=== PATIENT | female | born 1940 | race Caucasian/White ===

== ENCOUNTER → 2018-09-12 13:46 | Outpatient (CLI) | payer MEDICARE, OTHER, SELFPAY ==
--- NOTE | 2018-09-12 | DI.MRI.S_ITS ---
PROCEDURE: MR KNEE RT WO CON INDICATIONS: DERANGEMENT OF RIGHT KNEE TECHNIQUE: Noncontrast sagittal PD fast spin echo and T2 fast spin echo with fat saturation, sagittal 3-D FLASH with fat saturation; coronal T1 spin echo and PD fast spin echo with fat saturation, and axial PD fast spin echo with fat saturation through the knee. COMPARISON: None. FINDINGS: Image quality: Excellent. Menisci: Complex oblique tear involving posterior horn of medial meniscus is seen extending to superior articulating surface. There is no focal lateral meniscal tear. There is peripheral displacement of medial meniscus bowing medial collateral ligament. The meniscal root ligaments appear intact. Cruciate ligaments: The anterior and posterior cruciate ligaments appear intact. Medial structures: The medial collateral ligament appears intact. The posterior oblique ligament, semimembranosus tendon insertions, oblique popliteal ligament, and meniscocapsular junction appear intact. Visualized portions of the pes anserinus tendons appear normal. No abnormal bursal fluid. Lateral structures: The lateral collateral ligament, long and short heads of the biceps femoris tendon appear intact. The popliteus tendon appears normal; the popliteofibular ligament appears intact. The posterosuperior and anteroinferior popliteomeniscal fascicles appear intact. The arcuate and fabellofibular ligaments appear intact, on either side of the lateral inferior geniculate artery. Iliotibial band appears normal. Anterior structures: The quadriceps and patellar tendons appear intact. Patellar alignment is normal. No femoral trochlear dysplasia or ventral trochlear prominence. No edema in the infrapatellar fat pad. Bones and cartilage: No bone marrow contusions or fractures. 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 Low-grade chondromalacia in all 3 compartments is also noted. Joint space: There is small amount of joint effusion, no gross loose body. No Farias's cyst. Normal appearing synovial plicae are incidentally noted. IMPRESSION: 1. Complex oblique tear involving posterior horn of medial meniscus extending to superior articulating surface. No evidence of focal lateral meniscal tear. 2. Mild to moderate tricompartmental osteoarthritis more prominent in the medial femorotibial compartment. Small amount of joint effusion. 3. Cruciate ligaments are intact. Dictated by: Kevin Carcamo M.D. on 09/12/2018 at 16:03 Approved by: Kevin Carcamo M.D. on 09/12/2018 at 16:06
== END ==
PROVIDERS: PCP Family Medicine; Visit Provider Orthopaedic Surgery
DX: S83.231A Complex tear of medial meniscus, current injury, right knee, initial encounter (principal); M17.11 Unilateral primary osteoarthritis, right knee; M94.261 Chondromalacia, right knee; M25.461 Effusion, right knee
CPT/HCPCS: 73721

== ENCOUNTER 2019-03-07 12:27 | Emergency (ER) | payer MEDICARE, OTHER, SELFPAY ==
--- NOTE | 2019-03-07 12:52 | DI.RAD.S_ITS ---
PROCEDURE: XR CHEST 2V INDICATIONS: cough, dyspnea TECHNIQUE: 2 views of the chest were acquired. COMPARISON: None. FINDINGS: Surgical changes and devices: None. Lungs and pleura: Slight elevation of the right diaphragm is present. There is scarring within the lung apices. Mild increased interstitial markings within the left infrahilar region/retrocardiac region are present with possible subtle developing airspace disease. There is no large effusion or pneumothorax. Mediastinum: Mediastinal contours are normal. Heart size is normal. There is aortic atherosclerosis. Bones and chest wall: No suspicious bony abnormalities. Soft tissues appear unremarkable. IMPRESSION: Possible developing left basilar pneumonia. Dictated by: Jett James M.D. on 03/07/2019 at 12:42 Approved by: Jett James M.D. on 03/07/2019 at 12:44
[2019-03-07 12:53] VITALS: BP 136/84; PULSE 75; RESP 20; TEMP 36.3; O2SAT 100; BMI 28.3
--- NOTE | 2019-03-07 13:01 | ED_ITS ---
HPI - SOB/Dyspnea <Bernie Goodwin PA-C - Last Filed: 03/07/19 20:34> General Chief Complaint: Shortness of Breath/Dyspnea Stated Complaint: cough x2 wks, exhaustion,coughing up green stuff Time Seen by Provider: 03/07/19 12:52 Source: patient Mode of arrival: Ambulatory Limitations: no limitations History of Present Illness HPI Narrative: This 78-year-old female comes to ED secondary to 10-14 day history of productive cough with green, discolored sputum. She states she has had some sinus pain and a bit of earache which are better. She denies sore throat. She did have a fever initially up to 101, none today. She has asthma and has been using her maintenance and rescue inhaler as needed and states these are working well for her. She has not had new wheeze or chest pain. She denies new extremity pain or swelling with this. She states she had some leftover antibiotic from a sinus infection at home that she started 3 or 4 days ago and actually feeling better, but was concerned about pneumonia. She is not sure what the antibiotic was. She states she came in at her daughter's insistence, does not want her to know about starting the antibiotic. She denies any specific exposures or foreign travel, however her is here with respiratory symptoms as well. Related Data Previous Rx's Medication Instructions Recorded doxycycline monohydrate 100 mg PO Q12H 10 Days #20 cap 03/07/19 Allergies Allergy/AdvReac Type Severity Reaction Status Date / Time amoxicillin [From Augmentin] Allergy Verified 03/07/19 14:08 clavulanic acid Allergy Verified 03/07/19 14:08 [From Augmentin] Review of Systems <Bernie Goodwin PA-C - Last Filed: 03/07/19 20:34> Review of Systems ROS Unobtainable: All systems reviewed & are unremarkable except as noted in HPI and below Patient History <Bernie Goodwin PA-C - Last Filed: 03/07/19 20:34> Medical History (Updated 03/07/19 @ 14:15 by Bernie Goodwin PA-C) Asthma (Chronic) Fibromyalgia (Chronic) Surgical History (Updated 03/07/19 @ 13:20 by Bernie Goodwin PA-C) History of sinus surgery (Resolved) Status post hysterectomy with oophorectomy (Resolved) Social History (Updated 03/07/19 @ 13:21 by Bernie Goodwin PA-C) Smoking Status: Former smoker Exam <Bernie Goodwin PA-C - Last Filed: 03/07/19 20:34> Narrative Exam Narrative: GENERAL APPEARANCE: Patient sitting comfortably, in no distress. HEAD: Mild bilateral maxillary tenderness EYES: PERRL, EOMI. EARS: Normal auditory canals, TMS intact, unable to fully visualize secondary to cerumen ORAL CAVITY: Normal oropharynx. THROAT: Clear. PND noted NECK/THYROID: Neck supple, full range of motion, no cervical lymphadenopathy. LUNGS: Coarse breath sounds without clear wheezes or crackles, wet cough on exam HEART: RRR without murmur, nl S1, S2, no S3 or S4. EXTREMITIES: Varicosities noted, trace edema, no calf tenderness Initial Vital Signs Initial Vital Signs: Vital Signs Temperature 97.3 F L 03/07/19 12:53 Pulse Rate 75 03/07/19 12:53 Respiratory Rate 20 03/07/19 12:53 Blood Pressure 136/84 03/07/19 12:53 Pulse Oximetry 100 03/07/19 12:53 <DO Renaldo Alcantara Last Filed: 03/08/19 07:08> Initial Vital Signs Initial Vital Signs: Vital Signs Temperature 97.3 F L 03/07/19 12:53 Pulse Rate 75 03/07/19 12:53 Respiratory Rate 20 03/07/19 12:53 Blood Pressure 136/84 03/07/19 12:53 Pulse Oximetry 100 03/07/19 12:53 Course <Bernie Goodwin PA-C - Last Filed: 03/07/19 20:34> Orders Ordered: ED Orders 03/07/19 12:52 XR chest 2V Stat Vital Signs Vital signs: Vital Signs - 8 hr 03/07/19 12:53 Temperature 97.3 F L Pulse Rate 75 Respiratory Rate 20 Blood Pressure 136/84 Pulse Oximetry 100 <DO Renlado Alcantara Last Filed: 03/08/19 07:08> Orders Ordered: ED Orders 03/07/19 12:52 XR chest 2V Stat Vital Signs Vital signs: Vital Signs - 8 hr 03/07/19 12:53 Temperature 97.3 F L Pulse Rate 75 Respiratory Rate 20 Blood Pressure 136/84 Pulse Oximetry 100 MDM - SOB/Dyspnea <Bernie Goodwin PA-C - Last Filed: 03/07/19 20:34> Imaging Data Chest x-ray: Radiologist's impression: [address] [address] XRay Report Signed Patient: Nilam OntiverosMR#: [id number] : 9Acct:[id number] Age/Sex: 78 / FDate of Service: 03/07/19 Loc: ED Accession Number: [id number] Procedure: XR chest 2V Ordering Provider: Bernie Goodwin P.A-C PROCEDURE: XR CHEST 2V INDICATIONS: cough, dyspnea TECHNIQUE: 2 views of the chest were acquired. COMPARISON: None. FINDINGS: Surgical changes and devices: None. Lungs and pleura: Slight elevation of the right diaphragm is present. There is scarring within the lung apices. Mild increased interstitial markings within the left infrahilar region/retrocardiac region are present with possible subtle developing airspace disease. There is no large effusion or pneumothorax. Mediastinum: Mediastinal contours are normal. Heart size is normal. There is aortic atherosclerosis. Bones and chest wall: No suspicious bony abnormalities. Soft tissues appear unremarkable. IMPRESSION: Possible developing left basilar pneumonia. Dictated by: Jett James M.D. on 03/07/2019 at 12:42 Approved by: Jett James M.D. on 03/07/2019 at 12:44 ECG Data Attestation: I personally reviewed and interpreted this ECG as follows: (Normal sinus rhythm, rate 77, LAD) Discharge Plan Departure Patient Disposition: Home Clinical Impression: Pneumonia Qualifiers: Pneumonia type: due to unspecified organism Laterality: left Lung location: unspecified part of lung Qualified Code(s): J18.9 - Pneumonia, unspecified organism Discharge Date/Time: 03/07/19 14:25 Instructions: DI for Pneumonia -- Adult Activity Restrictions/Additional Instructions: Please continue to use your inhalers as usual, along with Mucinex to help with chest congestion. Your chest x-ray shows that you may have an early or mild pneumonia, so it is reasonable to treat with antibiotics. I have sent a prescription for doxycycline to [facility] for you to strip picker today. Please start that when you pick it up. As we talked about, you should return to the closest ED if you have acutely worsening symptoms. Otherwise, please follow-up for recheck with your PCP next week. If you wish to see a local primary care provider, you can call the [facility] key account coordinator at [phone], and they can help you with this Prescriptions: New doxycycline monohydrate 100 mg capsule 100 mg PO Q12H 10 Days Qty: 20 RF: 0 Referrals: Jordon Kothari MD [Primary Care Provider] - <Martin Gregorio DO - Last Filed: 03/08/19 07:08> Sign Out Provider Sign Out Attestation: I was available for consultation during this patient's emergency department visit. This chart is signed by myself for administrative purposes only. I did not have direct contact with this patient during this visit. They were seen independently by the APC.
== END 2019-03-07 14:25 | disposition home or self-care (01) ==
PROVIDERS: Emergency Provider Internal Medicine; PCP Family Medicine
DX: J18.9 Pneumonia, unspecified organism (principal)
CPT/HCPCS: 71046; 93005; 99283; 99284

== ENCOUNTER → 2021-07-07 16:22 | Outpatient (CLI) | payer MEDICARE, OTHER, SELFPAY ==
--- NOTE | 2021-07-07 | DI.ECHO.S_ITS ---
Version: 1 Study ID: [id number] [place] [address] Name: ISRAEL VAZ Study Date: 07/07/2021, 4: 43 PM : 1940 BP: 139 / 89 mmHg Gender: Female Height: 62 in Age: 80 Years Weight: 138 lb BSA: 1.63 mA? Ordering: ENOCH FOX Referring: ENOCH FOX Clinician: Yin Read Reason For Study: SHORTNESS OF BREATH History: Summary Statements The left ventricle is normal in size and wall thickness. Left ventricular systolic function appears normal without focal wall motion abnormalities. The ejection fraction is estimated to be 60-65%. Diastolic parameters suggest a relaxation abnormality of the left ventricle, consistent with probable normal filling pressures. The right ventricle is normal in size and function. The right ventricular systolic pressure is estimated to be at least 27 mmHg based on an estimated right atrial pressure of 3 mm Hg. The left atrial size is normal. Right atrial size is normal. There is mild mitral annular calcification. There is trace mitral regurgitation. There is mild tricuspid regurgitation. There is no other significant valvular heart disease. The aortic root is normal size. Procedure: A two-dimensional transthoracic echocardiogram with color flow and Doppler was performed. The study quality was technically adequate. There is no prior echocardiogram noted for this patient. The patient was in sinus rhythm with heart rates between 62-76 bpm during the exam. The patient had occasional PVCs during the exam. Left Ventricle: The left ventricle is normal in size and wall thickness. Left ventricular systolic function appears normal without focal wall motion abnormalities. The ejection fraction is estimated to be 60-65%. Diastolic parameters suggest a relaxation abnormality of the left ventricle, consistent with probable normal filling pressures. Right Ventricle: The right ventricle is normal in size and function. Atria: The left atrial size is normal. Right atrial size is normal. There is no Doppler evidence for an interatrial shunt. Mitral Valve: There is mild mitral annular calcification. The mitral valve leaflets appear mildly thickened, but open well. There is trace mitral regurgitation. Aortic Valve: The aortic valve is trileaflet. The aortic valve is slightly calcified. The aortic valve opens well. There is no aortic valve stenosis. No aortic regurgitation is present. Tricuspid Valve: The tricuspid valve is normal in structure and function. There is mild tricuspid regurgitation. The right ventricular systolic pressure is estimated to be at least 27 mmHg based on an estimated right atrial pressure of 3 mm Hg. Pulmonic Valve: The pulmonic valve is not well seen, but is grossly normal. There is trace pulmonic regurgitation. There is no other significant valvular heart disease. Great Vessels: The aortic root is normal size. The ascending aorta could not be visualized. The IVC is of normal diameter and collapses greater than 50% with a sniff. This suggests a low right atrial pressure of 3 mm Hg. Pericardium/ Pleura: There is no pericardial effusion. There is no pleural effusion. 2D and M-Mode Measurements and Calculations LVIDd: 4.5 cm LVOT diam: 1.90 cm LVIDs: 2.8 cm Ao root diam: 2.9 cm IVSd: 0.81 cm Ao Arch Diam (Prox Trans): 2.39 cm LVPWd: 0.70 cm LV mccoy. diameter/BSA (cm/m^2): 2.7 LV sys. diameter/BSA (cm/m^2): 1.74 RVD1 (basal): 2.7 cm IVC diam: 1.17 cm TAPSE: 1.90 cm LA A4 area: 11.7 desk attendant? RA area: 11.4 desk attendant? LA A2 area: 15.2 desk attendant? RA long axis: 4.3 cm LA length (vol): 4.3 cm RA vol: 25.7 ml LA vol: 35.4 ml RA : 15.7 ml/mA? LA vol index: 21.7 ml/mA? Doppler Measurements and Calculations Ao V2 max: 145.5 cm/sec LVOT Max [place]: 107.1 cm/sec Ao V2 mean: 102.5 cm/sec LV V1 max P.6 mmHg Ao V2 VTI: 28.6 cm LV V1 VTI: 23.9 cm Ao max P.5 mmHg Ao mean P.7 mmHg CATALINA(I,D): 2.36 desk attendant? CATALINA(V,D): 2.08 desk attendant? CATALINA indexed to BSA (cm^2/m^2): 1.45 sev ratio: 0.83 MV E max chino: 78.3 cm/sec MV dec time: 0.24 sec MV A max chino: 127.6 cm/sec MV E/A: 0.61 Med Peak E' Chino: 4.0 cm/sec Lat Peak E' [place]: 5.7 cm/sec E/e' average: 16.8 TR max chino: 242.7 cm/sec PA mean P.30 mmHg TR max P.6 mmHg PA V2 max: 105.7 cm/sec Electronically signed by: Villa Shaffer 07/08/2021, 9: 08 AM
== END ==
PROVIDERS: PCP Internal Medicine; Referring Provider Student in an Organized Health Care Education/Training Program; Visit Provider Student in an Organized Health Care Education/Training Program
DX: I07.1 Rheumatic tricuspid insufficiency (principal); R06.02 Shortness of breath
CPT/HCPCS: 93306

== ENCOUNTER → 2021-12-03 15:27 | Outpatient (CLI) | payer MEDICARE, OTHER, SELFPAY ==
--- NOTE | 2021-12-03 | DI.RAD.S_ITS ---
PROCEDURE: XR THORACIC SPINE 3V INDICATIONS: WORSENING OF MID-BACK PAIN TECHNIQUE: <3> views of the thoracic spine were acquired. COMPARISON: None. FINDINGS: Bones: Mild wedging of multiple thoracic vertebral bodies, age indeterminate. Qrgl-tf-pfcroggw multilevel spondylosis characterized by osteophytes, disc space height loss primarily. Soft tissues: No paravertebral stripe thickening. Suspected gallstones. Aortic calcifications. IMPRESSION: Escv-pp-[id number] thoracic spondylosis. Age-indeterminate trace wedging of some thoracic vertebral bodies. Suspected cholelithiasis. Atherosclerotic calcifications. Dictated by: Blayne Avendaño M.D. on 12/03/2021 at 16:51 Approved by: Blayne Avendaño M.D. on 12/03/2021 at 16:53
== END ==
PROVIDERS: PCP Internal Medicine; Referring Provider Internal Medicine; Visit Provider Internal Medicine
DX: M47.814 Spondylosis without myelopathy or radiculopathy, thoracic region (principal); M54.9 Dorsalgia, unspecified
CPT/HCPCS: 72072

== ENCOUNTER → 2022-06-02 13:53 | Outpatient (CLI) | payer MEDICARE, OTHER, SELFPAY ==
--- NOTE | 2022-06-02 | DI.CT.S_ITS ---
PROCEDURE: CT ABDOMEN PELVIS W CON INDICATIONS: Epigastric pain TECHNIQUE: After the administration of oral and IV contrast, axial sections were acquired from the lung bases to the pubic symphysis. Coronal and sagittal reformats were performed. For radiation dose reduction, the following was used: automated exposure control, adjustment of mA and/or kV according to patient size. COMPARISON: None. FINDINGS: Image quality: Excellent. Lung bases: Right basilar atelectasis. There are masses in breasts bilaterally. The largest mass is in the left breast measuring a 2 x 3 cm. Heart: Normal size. Small pericardial effusion. ABDOMEN: Liver: There are multiple hepatic hypodensities compatible with cysts. Many tiny lesions are too small to further characterize, therefore, considered indeterminate. Gallbladder: There are multiple calcified gallstones. Biliary ducts: Unremarkable. Pancreas: Unremarkable. Spleen: Normal size. There are 2 splenules around spleen. Adrenal Glands: Unremarkable. Kidneys and Ureters: There is a 2 mm nonobstructive stone in the inferior pole of the right kidney. There are renal cysts bilaterally. No solid renal masses. Stomach and Bowel: Stomach is distended. There is irregular thickening of the gastric antrum and proximal duodenum. Mild segmental thickening of jejunum. Small bowel loops, and colon are normal in caliber. There is colonic diverticulosis; no diverticulitis. There is a large amount of stool in colon. Peritoneum: No abnormal intraperitoneal fluid. No free air. Ventral Wall: No hernia. Abdominal Nodes: No retroperitoneal or mesenteric adenopathy by size criteria. Vessels: Aorta and inferior vena cava are normal in size. PELVIS: Pelvic Organs: Unremarkable. Bladder: Unremarkable. Pelvic Nodes: No enlarged lymph nodes. Miscellaneous: No inguinal hernias are seen. Bones: Unremarkable. IMPRESSION: 1. Irregular thickening of gastric antrum and proximal duodenum suggesting a mass. Stomach is distended. There may be a degree of gastric outlet obstruction. Recommend upper endoscopy for further evaluation. 2. There is mild segmental thickening of jejunum, which is nonspecific. Differential diagnoses include antritis versus artifact. 3. Colonic diverticulosis without diverticulitis. 4. Cholelithiasis. 5. Bilateral breast masses. The largest mass is in the left breast laterally measuring 2 x 3 cm. Recommend correlation with findings on breast exam and mammograms. If clinically indicated, breast ultrasound can be obtained for further evaluation. Dictated by: Anirudh Jones M.D. on 06/02/2022 at 17:24 Approved by: Anirudh Jones M.D. on 06/03/2022 at 7:57
== END ==
PROVIDERS: PCP Internal Medicine; Referring Provider Internal Medicine; Visit Provider Internal Medicine
DX: N63.10 Unspecified lump in the right breast, unspecified quadrant (principal); N63.20 Unspecified lump in the left breast, unspecified quadrant; I31.39 Other pericardial effusion (noninflammatory); R63.4 Abnormal weight loss; R10.13 Epigastric pain; K80.20 Calculus of gallbladder without cholecystitis without obstruction; N20.0 Calculus of kidney; N28.1 Cyst of kidney, acquired; K31.89 Other diseases of stomach and duodenum; K57.90 Diverticulosis of intestine, part unspecified, without perforation or abscess without bleeding
CPT/HCPCS: 74177; Q9967

== ENCOUNTER → 2022-09-08 14:50 | Outpatient (CLI) | payer MEDICARE, OTHER, SELFPAY ==
--- NOTE | 2022-09-08 | DI.CT.S_ITS ---
PROCEDURE: CT SINUS SCREEN WO CON INDICATIONS: Chronic maxillary sinusitis TECHNIQUE: Noncontrast 3.0 mm axial images acquired from the frontal sinuses to the mid-sella, with coronal and sagittal reformats. For radiation dose reduction, the following was used: automated exposure control, adjustment of mA and/or kV according to patient size. COMPARISON: [facility], CT, SINUS W/O CONTRAST, 02/02/2012, 11:17. [facility], CT, SINUS SCREEN WO CONTRAST, 06/03/2014, 10:28. FINDINGS: Image quality: Excellent. Maxillary Sinuses: Moderate mucosal thickening is seen within the maxillary sinuses. The medial pérez of the maxillary sinuses are absent. There is overall thickening of the other pérez of the maxillary sinuses. Ethmoid Air Cells: Portions of the ethmoid air cell septations have been removed. There is at least moderate mucosal thickening the ethmoid air cells. Sphenoid Sinuses: Moderate mucosal thickening is seen involving the sphenoid sinuses, right worse than left. There is overall thickening pérez of the sphenoid sinuses. Frontal Sinuses: There is complete opacification of the right frontal sinus. There is moderate mucosal thickening the inferior medial left frontal sinus. No definite bony remodeling is seen. Ostiomeatal Complexes: Removed. Miscellaneous: Visualized intra-orbital contents are normal. Portions of the middle turbinates have been removed. The other nasal turbinates demonstrate demineralization. There is moderate rightward nasal septal deviation. IMPRESSION: Widespread paranasal sinus disease is seen. Prior postoperative change, bilateral antrectomies, with removal of portions of the ethmoid air cell septations and portions of the middle turbinates. Multifocal bony remodeling change can be seen, which is consistent with chronic sinusitis. Dictated by: Sushant Friend M.D. on 09/08/2022 at 14:48 Approved by: Sushant Friend M.D. on 09/08/2022 at 14:51
== END ==
PROVIDERS: PCP Internal Medicine; Referring Provider Internal Medicine; Visit Provider Internal Medicine
DX: J32.8 Other chronic sinusitis (principal); J34.2 Deviated nasal septum
CPT/HCPCS: 70486

== ENCOUNTER → 2023-04-05 15:02 | Outpatient (CLI) | payer MEDICARE, OTHER, SELFPAY ==
--- NOTE | 2023-04-05 | DI.MRI.S_ITS ---
PROCEDURE: MR HEAD/BRAIN WO CON INDICATIONS: Dementia in other diseases classified elsewhere TECHNIQUE: Non-contrast axial T1 spin echo, axial T2 fast spin echo, sagittal and axial FLAIR, coronal T2 fast spin echo, axial gradient echo, axial diffusion and ADC through the brain. COMPARISON: None. FINDINGS: Image quality: Excellent. CSF spaces: Ventricles appear symmetric in size and shape. Basal cisterns are patent. No extra-axial fluid collections. Brain: No intracranial bleeds or mass effects. There is cerebral volume loss for age. There are periventricular and deep white matter chronic small vessel ischemic changes. Brainstem appears normal. Diffusion-weighted images show no acute ischemic insults. Old lacunar infarct within the karla. Normal intravascular flow voids are present. Skull and face: Calvarial bone marrow is normal in signal. Bilateral lens replacements. Otherwise, the orbits are unremarkable. Sinuses: Postsurgical changes from prior endoscopic sinonasal surgery. Diffuse paranasal sinus mucosal thickening, worse within the ethmoid air cells. The mastoids are clear. IMPRESSION: 1. No acute intracranial abnormalities. 2. Age-related global volume loss and chronic microvascular ischemic changes. 3. Prior endoscopic sinonasal surgery. Diffuse paranasal sinus mucosal thickening worse within the ethmoid air cells with near complete opacification. Dictated by: Wally Pathak M.D. on 04/05/2023 at 16:06 Approved by: Wally Pathak M.D. on 04/05/2023 at 16:09
== END ==
PROVIDERS: PCP Physician Assistant; Referring Provider Physician Assistant; Visit Provider Physician Assistant
DX: G30.1 Alzheimer's disease with late onset (principal); F02.818 Dementia in other diseases classified elsewhere, unspecified severity, with other behavioral disturbance; J32.8 Other chronic sinusitis
CPT/HCPCS: 70551

== ENCOUNTER 2023-04-13 12:08 | Emergency (ER) | payer MEDICARE, OTHER, SELFPAY ==
[2023-04-13 12:13] VITALS: BP 126/82; PULSE 60; RESP 18; TEMP 36.8; O2SAT 98; BMI 23.8
--- NOTE | 2023-04-13 13:04 | DI.RAD.S_ITS ---
PROCEDURE: XR LUMBAR SPINE 2-3V INDICATIONS: neck and back pain, no witnessed fall, pt poor historian TECHNIQUE: 3 views of the lumbar spine were acquired. COMPARISON: None. FINDINGS: Bones: 5 mcd-rzc-xezybtk vertebrae are present. There is normal bony alignment. No vertebral body compression fractures. No suspicious bony lesions. Severe multilevel disc height loss and multilevel facet arthropathy. Soft tissues: Overlying bowel gas pattern is normal. No suspicious soft tissue calcifications. IMPRESSION: Lumbar degenerative change. No acute bony abnormality. Dictated by: Sid Vásquez M.D. on 04/13/2023 at 13:53 Approved by: Sid Vásquez M.D. on 04/13/2023 at 13:54
--- NOTE | 2023-04-13 13:04 | DI.RAD.S_ITS ---
PROCEDURE: XR THORACIC SPINE 2V INDICATIONS: neck and back pain, no witnessed fall, pt poor historian TECHNIQUE: 3 views of the thoracic spine were acquired. COMPARISON: [facility], CR, XR THORACIC SPINE 3V, 12/03/2021, 16:23. FINDINGS: Bones: No fractures or dislocations. No suspicious bony lesions. 12 pairs of ribs are noted, and appear intact where visualized. Soft tissues: No paravertebral stripe thickening. IMPRESSION: No acute bony abnormality. Dictated by: Sid Vásquez M.D. on 04/13/2023 at 13:55 Approved by: Sid Vásquez M.D. on 04/13/2023 at 13:55
--- NOTE | 2023-04-13 13:04 | DI.RAD.S_ITS ---
PROCEDURE: XR CERVICAL SPINE 2V OR 3V INDICATIONS: neck and back pain, no witnessed fall, pt poor historian TECHNIQUE: 3 view(s) of the cervical spine were acquired. COMPARISON: None. FINDINGS: Bones: No fractures or dislocations to the T1 level. The lateral masses of C1 appear intact on the odontoid view. No suspicious bony lesions. Severe disc height loss at C3-4 C6-7, C5-6. Mild disc height loss at remaining levels. Diffuse facet arthrosis. Soft tissues: No prevertebral soft tissue swelling. IMPRESSION: No displaced fracture or traumatic subluxation. Moderate to severe, multilevel degenerative disc disease and facet arthrosis. Dictated by: Maury Garner M.D. on 04/13/2023 at 13:58 Approved by: Maury Garner M.D. on 04/13/2023 at 13:58
[2023-04-13 14:20] VITALS: BP 135/61; PULSE 66; RESP 18; O2SAT 100
--- NOTE | 2023-04-13 14:39 | ED.BACK ---
HPI - Back Pain/Injury <Reina Ennis PA-C - Last Filed: 04/13/23 15:06> General Chief Complaint: Back Pain/Injury Stated Complaint: Severe pain, neck shoulders, back Time Seen by Provider: 04/13/23 12:53 Source: patient History of Present Illness HPI Narrative: Patient is an 82-year-old female with fibromyalgia who presents accompanied by her daughter for evaluation of 3 days of back pain. She was at her baseline until she woke up 3 days ago with severe neck, upper back and low back pain. She denies any falls or recent injuries. Daughter states she did have a significant fall about 2 years ago but she does not know of any recently. She lives with a daughter. She takes gabapentin for her fibromyalgia as well as Tylenol and ibuprofen as needed. She has tried applying heat. None of these interventions are helping. She reports not being able to do very much of the last 3 days due to the pain. She denies any numbness or tingling in her legs or any new loss of bowel or bladder control. She is able to ambulate but it is very painful in her back. She denies fever or chills. When asked if she has chronic back pain, the patient replies no but the patient's daughter states that she complains constantly of back pain. The daughter does note that for the past 3 days she has been much less active and complaining of more pain usual. She has not had fever or chills and has been eating normally. Related Data Home Medications Medication Instructions Recorded Confirmed albuterol sulfate 90 mcg/actuation 2 puff inhalation Q4-6H PRN 03/29/23 03/29/23 aerosol inhaler apixaban 2.5 mg tablet (Eliquis) 2.5 mg PO BID 03/29/23 03/29/23 gabapentin 100 mg capsule 100 mg PO DAILY 03/29/23 03/29/23 gabapentin 300 mg capsule 300 mg PO BEDTIME 03/29/23 03/29/23 hydrochlorothiazide 12.5 mg capsule 12.5 mg PO QAM 03/29/23 03/29/23 losartan 25 mg tablet 25 mg PO DAILY 03/29/23 03/29/23 meloxicam 7.5 mg tablet 7.5 mg PO DAILY 03/29/23 03/29/23 montelukast 10 mg tablet 10 mg PO QDAY 03/29/23 03/29/23 Previous Rx's Medication Instructions Recorded fluticasone propionate 250 1 inh inhalation BID #60 ea 03/29/23 mcg/actuation blister powder for inhalation tizanidine 2 mg tablet 2 mg PO Q12H PRN muscle spasticity 04/13/23 #10 tabs Allergies Allergy/AdvReac Type Severity Reaction Status Date / Time amoxicillin [From Augmentin] Allergy Verified 03/29/23 14:22 clavulanic acid Allergy Verified 03/29/23 14:22 [From Augmentin] Review of Systems <Reina Ennis PA-C - Last Filed: 04/13/23 15:06> Review of Systems ROS Unobtainable: All systems reviewed & are unremarkable except as noted in HPI and below Patient History <Reina Ennis PA-C - Last Filed: 04/13/23 15:06> Medical History Asthma Fibromyalgia Surgical History History of sinus surgery Status post hysterectomy with oophorectomy Social History Smoking Status: Former smoker Smoking Status: Former smoker Substance Use Type: does not use Exam <Reina Ennis PA-C - Last Filed: 04/13/23 15:06> Narrative Exam Narrative: GENERAL: 82 year old patient appears stated age. Well-developed patient, irritable. NEURO: AOx3 but poor recall of medical history. HEAD: Atraumatic. Normocephalic. EYES: Pupils equal round and reactive. Extraocular motions intact. No scleral icterus. No injection or drainage. ENT: Nose without bleeding or purulent drainage. Airway patent. RESPIRATORY: No distress. SPINE: Patient with midline tenderness to light palpation of her C-spine, thoracic spine and lumbar spine. Also c/o pain with light touch of the paraspinal areas and or generally, her posterior trunk and her arms. Patient with reassuring lower extremity neurovascular exam, 5/5 strength in the lower extremities, sensation intact. Patient observed ambulating to the restroom independently without help from her daughter or use of any assistive devices. Patient appears steady on her feet. EXTREMITIES: No edema or joint tenderness. SKIN: No rash or erythema of visible areas Initial Vital Signs Initial Vital Signs: Vital Signs Temperature 98.2 F 04/13/23 12:13 Pulse Rate 60 04/13/23 12:13 Respiratory Rate 18 04/13/23 12:13 Blood Pressure 126/82 04/13/23 12:13 Pulse Oximetry 98 04/13/23 12:13 Oxygen Delivery Method Room Air 04/13/23 12:13 <Esther Martinez MD - Last Filed: 04/13/23 15:57> Initial Vital Signs Initial Vital Signs: Vital Signs Temperature 98.2 F 04/13/23 12:13 Pulse Rate 60 04/13/23 12:13 Respiratory Rate 18 04/13/23 12:13 Blood Pressure 126/82 04/13/23 12:13 Pulse Oximetry 98 04/13/23 12:13 Oxygen Delivery Method Room Air 04/13/23 12:13 Course <Reina Ennis PA-C - Last Filed: 04/13/23 15:06> Orders Ordered: ED Orders 04/13/23 13:04 XR cervical spine 2V or 3V Stat XR lumbar spine 2-3V Stat XR thoracic spine 2V Stat Vital Signs Vital signs: Vital Signs - 8 hr 04/13/23 12:13 04/13/23 14:20 Temperature 98.2 F Pulse Rate 60 66 Respiratory Rate 18 18 Blood Pressure 126/82 135/61 Pulse Oximetry 98 100 Oxygen Delivery Method Room Air Room Air <Esther Martinez MD - Last Filed: 04/13/23 15:57> Orders Ordered: ED Orders 04/13/23 13:04 XR cervical spine 2V or 3V Stat XR lumbar spine 2-3V Stat XR thoracic spine 2V Stat Vital Signs Vital signs: Vital Signs - 8 hr 04/13/23 12:13 04/13/23 14:20 Temperature 98.2 F Pulse Rate 60 66 Respiratory Rate 18 18 Blood Pressure 126/82 135/61 Pulse Oximetry 98 100 Oxygen Delivery Method Room Air Room Air MDM - Back Pain/Injury <Reina Ennis PA-C - Last Filed: 04/13/23 15:06> Imaging Data xr C, T, L spines: Radiologist's Impression: PROCEDURE: XR CERVICAL SPINE 2V OR 3V INDICATIONS: neck and back pain, no witnessed fall, pt poor historian TECHNIQUE: 3 view(s) of the cervical spine were acquired. COMPARISON: None. FINDINGS: Bones: No fractures or dislocations to the T1 level. The lateral masses of C1 appear intact on the odontoid view. No suspicious bony lesions. Severe disc height loss at C3-4 C6-7, C5-6. Mild disc height loss at remaining levels. Diffuse facet arthrosis. Soft tissues: No prevertebral soft tissue swelling. IMPRESSION: No displaced fracture or traumatic subluxation. Moderate to severe, multilevel degenerative disc disease and facet arthrosis. Dictated by: Maury Garner M.D. on 04/13/2023 at 13:58 Approved by: Maury Garner M.D. on 04/13/2023 at 13:58 PROCEDURE: XR LUMBAR SPINE 2-3V INDICATIONS: neck and back pain, no witnessed fall, pt poor historian TECHNIQUE: 3 views of the lumbar spine were acquired. COMPARISON: None. FINDINGS: Bones: 5 eye-wkr-aiztors vertebrae are present. There is normal bony alignment. No vertebral body compression fractures. No suspicious bony lesions. Severe multilevel disc height loss and multilevel facet arthropathy. Soft tissues: Overlying bowel gas pattern is normal. No suspicious soft tissue calcifications. IMPRESSION: Lumbar degenerative change. No acute bony abnormality. Dictated by: Sid Vásquez M.D. on 04/13/2023 at 13:53 Approved by: Sid Vásquez M.D. on 04/13/2023 at 13:54 PROCEDURE: XR THORACIC SPINE 2V INDICATIONS: neck and back pain, no witnessed fall, pt poor historian TECHNIQUE: 3 views of the thoracic spine were acquired. COMPARISON: [facility], , XR THORACIC SPINE 3V, 12/03/2021, 16:23. FINDINGS: Bones: No fractures or dislocations. No suspicious bony lesions. 12 pairs of ribs are noted, and appear intact where visualized. Soft tissues: No paravertebral stripe thickening. IMPRESSION: No acute bony abnormality. Dictated by: Sid Vásquez M.D. on 04/13/2023 at 13:55 Approved by: Sid Vásquez M.D. on 04/13/2023 at 13:55 MDM Narrative Medical decision making narrative: Multiple etiologies for patient's symptoms considered including, but not limited to: Exacerbation of fibromyalgia, muscular spasm, fracture, dislocation Patient with 3 days of severe neck, upper and lower back pain without any history of fall or other injury. Patient has significant chronic pain at baseline due to diagnosis of fibromyalgia. Her exam is reassuring and she ambulates independently. Discussed possibility of subacute/compression fracture in her spine given her age; will obtain x-rays today. X-rays without evidence of fracture, significant degenerative changes seen in the C-spine. Discussed findings with the patient and her daughter. We will trial low dose tizanidine muscle relaxer for relief of the pain. Discussed risks and benefits of this medication. We will not use any other muscle relaxer medication given patient's age (Beers Criteria). Discussed risk of hypotension, especially when combined with antihypertensive medications. Patient and daughter state understanding of the risks and appropriate precautions. Advised continued Tylenol, gentle activity and stretching, heat, lidocaine patches and other supportive measures. Follow up with primary care if pain not improving with these measures. Patient's symptoms improved over duration of stay with above-stated therapies. Findings and discharge diagnosis discussed with patient/family followed by verbalization of understanding Return precautions discussed with patient/family whom verbalize understanding of diagnosis and plan Discharge Plan Departure Patient Disposition: Home Clinical Impression: Fibromyalgia, Neck arthralgia Back pain Qualifiers: Back pain location: back pain in unspecified location Chronicity: unspecified Back pain laterality: midline Qualified Code(s): M54.89 - Other dorsalgia Instructions: Fibromyalgia, DI for Neck Pain Activity Restrictions/Additional Instructions: *You have been diagnosed with muscular neck and back pain. I suspect this is related to muscle spasm, possibly due to poor sleeping position, possibly worsened by underlying fibromyalgia. X-rays of your spine do not show any acute fractures. I will prescribe a low dose muscle relaxer medication which will hopefully help you be more comfortable. Please be very careful as this medication may make you lightheaded or dizzy, and increase your risk of falling. Do not combine it with other sedative medications or with alcohol. I have given you a limited number of pills as this medication is meant to be used in the short term. If you continue to have significant pain, I would recommend calling your primary care's office to discuss with them. *What to do: *Please continue to take your regular medications as directed. [x ] New medication prescriptions sent to your pharmacy: [facility] [ ] New medication written as a paper prescription [ ] No new medications given *Please follow up with your primary care provider in 2-3 days, call for an appointment. Let them know you were seen in the Emergency Department and that we ask that you be seen in follow up. We will electronically transmit a record of today's note if your PCP is in our system *If you do not have a primary care provider please contact the [facility] Resource line at [phone]. They will ask some questions about your medical history and help get you set up with a doctor in the community. *Return to Emergency Department if you should have any new, worsening or concerning symptoms, such as [fever greater than 101 F, shaking chills, worsening pain, persistent vomiting or other concerning symptoms]. Prescriptions: New tizanidine 2 mg tablet 2 mg PO Q12H PRN (Reason: muscle spasticity) Qty: 10 0RF Rx Instructions: Observe for lightheadedness or dizziness, take caution with position changes. Do not combine with alcohol or other sedative medications. No Action losartan 25 mg tablet 25 mg PO DAILY Eliquis 2.5 mg tablet 2.5 mg PO BID hydrochlorothiazide 12.5 mg capsule 12.5 mg PO QAM meloxicam 7.5 mg tablet 7.5 mg PO DAILY montelukast 10 mg tablet 10 mg PO QDAY gabapentin 300 mg capsule 300 mg PO BEDTIME gabapentin 100 mg capsule 100 mg PO DAILY albuterol sulfate 90 mcg/actuation HFA aerosol inhaler 2 puff inhalation Q4-6H PRN fluticasone propionate 250 mcg/actuation blister with device 1 inh inhalation BID Qty: 60 11RF Referrals: Deepa Galloway PA-C [Primary Care Provider] - Stand Alone Forms: Patient Portal/API ED Sign-out <Esther Martinez MD - Last Filed: 04/13/23 15:57> Cosign ED Attending Woody Attestation: I did not see this patient. I was available all times for consultation.
== END 2023-04-13 14:21 | disposition home or self-care (01) ==
PROVIDERS: Emergency Provider Physician Assistant; PCP Physician Assistant
DX: M79.7 Fibromyalgia (principal); M54.89 Other dorsalgia; M51.36 Other intervertebral disc degeneration, lumbar region; M50.31 Other cervical disc degeneration, high cervical region; M50.322 Other cervical disc degeneration at C5-C6 level; M50.323 Other cervical disc degeneration at C6-C7 level
CPT/HCPCS: 72040; 72070; 72100; 99281; 99283

== ENCOUNTER → 2023-05-18 13:06 | Outpatient (CLI) | payer MEDICARE, OTHER, SELFPAY | LOC: RESP 13:06 | PROVIDERS: PCP Physician Assistant; Referring Provider Internal Medicine Critical Care Medicine; Visit Provider Internal Medicine Critical Care Medicine | DX: J44.9 Chronic obstructive pulmonary disease, unspecified (principal); Z87.891 Personal history of nicotine dependence | CPT/HCPCS: 94060; 94726; 94729 ==